=== PATIENT | female | born 2005 | race Caucasian/White ===

== ENCOUNTER 2024-12-25 09:03 | Inpatient (IN) ==
[2024-12-25] MEDS: SODIUM CHLORIDE 0.9% 1,000 ML IV ONE (09:40)
[2024-12-25] MEDS: ONDANSETRON INJ 2 MG/ML 2 ML VIAL IV STA (09:40)
[2024-12-25 09:55] LABS: Hematocrit (blood only) 43.7 % (37.0-47.0); Hemoglobin 14.6 g/dl (12.0-16.0); Immature Granulocytes # (auto) 0.03 K/uL (0.01-0.20); Immature Granulocytes % (auto) 0.3 %; Mean Corpuscular Hemoglobin 30.5 pg (25.0-34.0); Mean Corpuscular Volume 91.4 fL (80.0-100.0); Platelet Count 295 K/uL (130-400); RDW Standard Deviation 44.1 fL (36.4-46.3); Red Blood Count 4.78 M/uL (4.20-5.40); White Blood Count 10.02 K/ul (4.8-10.8)
--- NOTE | 2024-12-25 09:57 | Emergency Department Note ---
Impression & Plan Nausea, vomiting, and diarrhea, Abdominal pain, Acute hypokalemia ED Provider Note HISTORY OF PRESENT ILLNESS: Patient is a 19-year-old female presenting with hematemesis, diarrhea and right lower quadrant abdominal pain. Patient reports that she has been sick since returning from the [facility] [place] on vacation 3 weeks ago. She reports she stayed at a resort and did not eat any new or strange foods. She states that she has been having decreased oral intake over the last 3 weeks secondary to nausea and that every time she eats anything she immediately has diarrhea. Reports that she has been having continuous diarrhea for the last 3 weeks. She has also had nausea. She states she woke up this morning and had an episode of dark bloody diarrhea. Reports that she then proceeded to vomit bright red blood. She states she also developed right lower quadrant abdominal pain this morning, and thought she should be evaluated. She is not on any anticoagulation or antiplatelet therapies. Denies any fevers. Reports she has been very shaky and having uncontrollable body twitches since the symptoms started. Denies any headache or changes in vision. She denies any recent changes in medications. She denies any dysuria or hematuria. Denies any history of abdominal surgeries. Currently complaining of 7 out of 10 right lower quadrant abdominal pain and feeling nauseous. Patient reports she has lost 12 pounds in the last 3 weeks. ROS: as above PHYSICAL EXAM: Constitutional: Patient appears in no acute distress. Patient is having diffuse muscle spasms and very shaky on exam. HENT: Head: Normocephalic and atraumatic. Eyes: EOMI, PERRL Mouth/Throat: Mucous membranes moist. Neck: Trachea midline. Neck supple. Cardiovascular: RRR, No murmurs, rubs or gallops. Intact distal pulses. Pulmonary/Chest: No respiratory distress. Breath sounds clear and equal bilaterally. No wheezes or rales. Abdominal: Abdomen soft, no rebound or guarding. RLQ TTP Musculoskeletal: No edema, tenderness or deformity noted. Skin: Warm and dry. No rash, erythema, pallor or cyanosis Psychiatric: Appropriate mood and affect for situation. Neurological: Alert and keenly responsive. CN II-XII grossly intact, moving all extremities equally and fully. MDM: - Vitals signs stable. - History obtained via patient. History as above. - Chronic conditions affecting care: None - Differential diagnoses include, but are not limited to: Electrolyte abnormality; infectious colitis; diverticulitis; appendicitis; UTI; acute dehydration; bowel obstruction - Order placed for continuous cardiac monitoring. At this time, monitor showed rate of 81 bpm with normal sinus rhythm, per my interpretation. - External medical records reviewed. - EKG image interpreted by myself showed normal sinus rhythm. Rate 76 bpm. QT 366. No acute ischemic changes. - Laboratory workup interpreted by myself showed normal WBC; normal lactate; hypokalemia (K 3.2); normal troponin; normal lipase; negative AST/ALT; normal lipase - Stool PCR, ova/parasite studies ordered, but patient unable to provide stool sample in ER. - UA negative for infection. Noted to have ketonuria - Viral respiratory panel negative - CT abdomen/pelvis with IV contrast negative for acute pathology. Noted to have a follicle in the right ovary. - Patient given 20 mg IV pepcid, 1g IV tylenol and 1L NS in ER. On reassessment, patient still complaining of abdominal pain. Given 50 mg IV Toradol and 25 mcg of IV fentanyl. On reassessment, the pain is slightly improved. She is given 20 mill equivalents of IV potassium with 500 cc of fluid for electrolyte replacement in the emergency department. - Discussed results with the patient. She is still feeling very unwell. She request that we wait till her mother arrived to discuss plan. On mother's arrival, mother expresses concern, as the patient has lost 12 pounds in the last 3 weeks. Patient is still unable to provide a stool sample in the emergency department, so unsure if it is infected diarrhea or potential parasite. Will discuss case with hospitalist service for potential observation. - Discussion was had with protective services case worker about patient's case and need for admission - Hospitalist consulted for admission - Patient admitted to [facility] hospitalist service for further evaluation and management. ASSESSMENT AND PLAN: Diagnosis: nausea, vomiting and diarrhea; abdominal pain; acute hypokalemia Plan: Discharge Past Med/Surg History Problem List (Updated 12/25/24 @ 14:19 by Bianca Miller MD) Acute hypokalemia (Acute) Abdominal pain (Acute) Nausea, vomiting, and diarrhea (Acute) Social History Smoking Status: Never smoker Preferred Language: Greek Feels Safe at Home: Yes Allergies Allergies Allergy/AdvReac Type Severity Reaction Status Date / Time No Known Allergies Allergy Unverified 12/25/24 12:42 Home Meds Home Medications Medication Instructions Recorded Confirmed buspirone 5 mg tablet 5 mg PO BID 12/25/24 12/25/24 isotretinoin 30 mg capsule 30 mg PO BID 12/25/24 12/25/24 levonorgestrel 21 mcg/24 hr (up to 21 mcg intrauterine DIRECTED 12/25/24 12/25/24 8 years) 52 mg intrauterine device (Mirena) multivitamin 1 tab PO DAILY 12/25/24 12/25/24 Results & Data (ED) Vital Signs Vital Signs - 24 hr 12/25/24 09:10 12/25/24 09:22 12/25/24 10:59 Temperature 36.6 C Temperature Source Temporal Artery Scan Pulse Rate 99 H 79 82 Pulse Rate [Apical] Pulse Rhythm [Apical] Respiratory Rate 18 Respiratory Effort / Characteristics Non-Labored Respiratory Depth Normal Respiratory Pattern Regular Blood Pressure 104/67 Blood Pressure [Right Arm] Blood Pressure Mean 79 Blood Pressure Mean [Right Arm] Pulse Oximetry 100 99 Oxygen Delivery Method Room Air Room Air Sepsis Recent Fever Within 48 Hours No Sepsis New/Unexplained Change in Mental Status N/A Sepsis Action Taken by Nursing No Action Required 12/25/24 11:00 12/25/24 13:50 12/25/24 14:39 Temperature Temperature Source Pulse Rate 63 Pulse Rate [Apical] 81 76 Pulse Rhythm [Apical] Regular Respiratory Rate 16 18 14 Respiratory Effort / Characteristics Non-Labored Spontaneous Non-Labored Spontaneous Respiratory Depth Normal Normal Respiratory Pattern Blood Pressure 105/60 Blood Pressure [Right Arm] 109/62 105/65 Blood Pressure Mean 75 Blood Pressure Mean [Right Arm] 77 78 Pulse Oximetry 100 98 100 Oxygen Delivery Method Room Air Nasal Cannula Room Air Room Air Sepsis Recent Fever Within 48 Hours Sepsis New/Unexplained Change in Mental Status Sepsis Action Taken by Nursing Laboratory Data 12/25/24 09:25 12/25/24 09:25 Lab Results 12/25/24 12/25/24 12/25/24 Range/Units 09:20 09:25 09:41 WBC 10.02 (4.8-10.8) K/ul RBC 4.78 (4.20-5.40) M/uL Hgb 14.6 (12.0-16.0) g/dl Hct 43.7 (37.0-47.0) % MCV 91.4 (80.0-100.0) fL MCH 30.5 (25.0-34.0) pg MCHC 33.4 (32.0-36.0) g/dL RDW Std Deviation 44.1 (36.4-46.3) fL RDW Coeff of Debbie 13.1 (11.5-14.5) % Plt Count 295 (130-400) K/uL MPV 9.9 (9.4-12.4) fL Immature Gran % (Auto) 0.3 % Neut % (Auto) 72.1 % Lymph % (Auto) 20.3 % Ware % (Auto) 7.0 % Eos % (Auto) 0.1 % Baso % (Auto) 0.2 % Neut # (Auto) 7.23 H (1.40-6.50) K/uL Lymph # (Auto) 2.03 (1.20-3.40) K/uL Ware # (Auto) 0.70 H (0.11-0.59) K/uL Eos # (Auto) 0.01 (0.00-0.50) K/uL Baso # (Auto) 0.02 (0.00-0.20) K/uL Immature Gran # (Auto) 0.03 (0.01-0.20) K/uL Sodium 137 (136-145) mmol/L Potassium 3.2 L (3.5-5.1) mmol/L Chloride 103 (98-107) mmol/L Carbon Dioxide 25 (21-32) mmol/L Anion Gap 9 (3-11) BUN 12 (6-23) mg/dl Creatinine 0.79 (0.6-1.2) mg/dl Est Cr Clr Drug Dosing 85.7 ml/min eGFR 109.75 BUN/Creatinine Ratio 15.2 (10-20) Glucose 88 (70-99(Fasting)) mg/dl Lactate 1.0 (0.4-2.0) mmol/L Calcium 10.0 (8.6-10.3) mg/dl Magnesium 2.4 (1.7-2.4) mg/dl Total Bilirubin 0.9 (0.2-1.0) mg/dl AST 16 (13-39) U/L ALT 11 (7-52) U/L Alkaline Phosphatase 68 (34-104) U/L Troponin I High Sens 3.4 (0-14) pg/ml Total Protein 9.2 H (6.0-8.3) gm/dl Albumin 5.1 H (3.4-5.0) gm/dl Globulin 4.1 H (2.5-4.0) gm/dl Albumin/Globulin Ratio 1.2 (0.9-2) Lipase 9 L (11-82) U/L HCG, Qual Negative (Negative) Urine Color Dark Yellow Urine Appearance Clear (Clear) Urine pH 5.5 (4.5-7.5) Ur Specific Randolph 1.034 H (1.000-1.030) Urine Protein Trace H (Negative) Urine Glucose (UA) Negative (Negative) Urine Ketones 2+ H (Negative) Urine Blood Negative (Negative) Urine Nitrite Negative (Negative) Urine Bilirubin Negative (Negative) Urine Urobilinogen Negative (Negative) Ur Leukocyte Esterase Trace H (Negative) Urine WBC (Auto) 0-5 (0-5) /hpf Urine RBC (Auto) 0-2 (0-2) /hpf U Hyaline Cast (Auto) 3-5 H (0-2) /lpf U Epithel Cells (Auto) 0-2 (0-2) /hpf Urine Bacteria (Auto) None Seen (None Seen) Calcium Oxalate Crystal Present A (None Prsent) Urine Comment Adenovirus (PCR) Not Detected (NotDetected) B. pertussis DNA (PCR) Not Detected (NotDetected) B.parapertussis DNA PCR Not Detected (NotDetected) C. pneumoniae DNA (PCR) Not Detected (NotDetected) Coronavirus OC43 (PCR) Not Detected (NotDetected) Coronavirus HKU1 (PCR) Not Detected (NotDetected) Coronavirus 229E (PCR) Not Detected (NotDetected) SARS-CoV-2 (PCR) Not Detected (NotDetected) Coronavirus NL63 (PCR) Not Detected (NotDetected) Human Metapneumovir PCR Not Detected (NotDetected) Influenza Type A (PCR) Not Detected (NotDetected) Influenza Type B (PCR) Not Detected (NotDetected) M. pneumoniae (PCR) Not Detected (NotDetected) Parainfluenza 1 (PCR) Not Detected (NotDetected) Parainfluenza 2 (PCR) Not Detected (NotDetected) Parainfluenza 3 (PCR) Not Detected (NotDetected) Parainfluenza 4 (PCR) Not Detected (NotDetected) RSV (PCR) Not Detected (NotDetected) Entero/Rhino (PCR) Not Detected (NotDetected) Administered Medications Discontinued Medications Fentanyl Citrate (Fentanyl Citrate Pf 100 Mcg/2 Ml Vial) 25 mcg IV NOW STA Stop: 12/25/24 12:26 Last Admin: 12/25/24 12:29 Dose: 25 mcg Documented By: CHIQUIS Sodium Chloride (Nss) 1,000 mls @ 999 mls/hr IV .Q1H1M ONE Stop: 12/25/24 10:21 Last Infusion: 12/25/24 10:44 Dose: Infused Documented By: Admin: 12/25/24 09:40 Dose: 999 mls/hr Documented By: CHIQUIS Famotidine (Pepcid 20mg Iv Push) 20 mg in 5 mls @ 2.5 mls/min IV NOW STA Stop: 12/25/24 09:53 Last Admin: 12/25/24 10:04 Dose: 2.5 mls/min Documented By: CHIQUIS Acetaminophen (Ofirmev) 1,000 mg in 100 mls @ 400 mls/hr IV NOW STA Stop: 12/25/24 10:06 Last Infusion: 12/25/24 10:44 Dose: Infused Documented By: Admin: 12/25/24 10:04 Dose: 400 mls/hr Documented By: CHIQUIS Potassium Chloride (K Tony / Wtr) 10 meq in 100 mls @ 100 mls/hr IV Q1H THIERRY Stop: 12/25/24 14:14 Last Infusion: 12/25/24 15:00 Dose: Infused Documented By: Admin: 12/25/24 13:49 Dose: 90 mls/hr Documented By: Infusion: 12/25/24 13:34 Dose: Infused Documented By: Admin: 12/25/24 12:21 Dose: 100 mls/hr Documented By: CHIQUIS Sodium Chloride (Nss) 500 mls @ 999 mls/hr IV .Q31M ONE Stop: 12/25/24 12:40 Last Infusion: 12/25/24 13:53 Dose: Infused Documented By: Admin: 12/25/24 12:21 Dose: 999 mls/hr Documented By: CHIQUIS Ioversol (Optiray 320 100ml) 90 ml IV ONCE ONE Stop: 12/25/24 11:24 Last Admin: 12/25/24 11:23 Dose: 90 ml Documented By: ELIAZAR Ketorolac Tromethamine (Ketorolac Tromethamine 15 Mg/Ml Vial) 15 mg IV NOW STA Stop: 12/25/24 12:26 Last Admin: 12/25/24 12:28 Dose: 15 mg Documented By: CHIQUIS Ondansetron HCl (Ondansetron Inj 2 Mg/Ml 2 Ml Vial) 4 mg IV NOW STA Stop: 12/25/24 09:22 Last Admin: 12/25/24 09:40 Dose: 4 mg Documented By: CHIQUIS Imaging Data Radiologist's Impression: Abdomen/Pelvis CT 12/25/24 09:52 CT SCAN OF THE ABDOMEN AND PELVIS WITH IV CONTRAST CLINICAL HISTORY: Right lower quadrant pain. Bloody diarrhea. COMPARISON STUDY: None. TECHNIQUE: Following the IV administration of 90 cc of Optiray 320, CT scan of the abdomen and pelvis is performed from the lung bases to the proximal femora. Images are reviewed in the axial, sagittal, and coronal planes. IV contrast was administered without complication. A dose lowering technique was utilized adhering to the principles of ALARA. CT DOSE: 416.12 mGy.cm FINDINGS: Visualized lung bases are unremarkable. There is no pneumatosis, free air or portal venous gas. Liver, spleen, adrenal glands, kidneys and pancreas are normal. There is no biliary or pancreatic ductal dilatation. No peripancreatic or pericholecystic infiltration is present. No hydronephrosis. Caliber and wall thickness of small and large bowel are normal. The appendix is normal. A small amount of fluid within the pelvis is likely physiologic. Intrauterine device is in place. 2.2 cm low-attenuation rim-enhancing right adnexal lesion is present. Left ovary is unremarkable by CT. Major vasculature is patent. There is no lymphadenopathy. No fluid collections. IMPRESSION: 1. Normal appendix. No bowel wall thickening. No bowel obstruction. 2. 2.2 cm dominant follicle within the right ovary. 3. Small amount of fluid within the pelvis, likely physiologic. ACT 112: Negative or not required by law. Electronically signed by: Kevin Choudhury M.D. 12/25/2024 11:54 AM Discharge Plan Visit Data Chief Complaint: Vomiting Stated Complaint: THROWING UP BLOOD, POOPING BLOOD, CAN'T EAT ED Provider: Bianca Miller Discharge Problem: Nausea, vomiting, and diarrhea, Abdominal pain, Acute hypokalemia Condition: Fair Forms Stand Alone Forms: My [facility] Prescriptions Prescriptions: No Action multivitamin Tablet 1 tab PO DAILY buspirone 5 mg tablet 5 mg PO BID Mirena 21 mcg/24hr (up to 8 yrs) 52 mg Intrauterine Device 21 mcg INTRAUTERINE DIRECTED isotretinoin 30 mg capsule 30 mg PO BID Referrals Referrals: [facility] [Primary Care Provider] -
[2024-12-25] MEDS: ACETAMINOPHEN 1,000 MG/100 ML VIAL IV STA (10:04)
[2024-12-25] MEDS: FAMOTIDINE 20MG IV PUSH 20 MG/5 ML SYR IV STA (10:04)
[2024-12-25 10:13] LABS: Alanine Aminotransferase 11.0 U/L (7-52); Albumin Globulin Ratio 1.2 (0.9-2); Alkaline Phosphatase 68.0 U/L (34-104); Anion Gap 9.0 (3-11); Bilirubin,Total 0.9 mg/dl (0.2-1.0); Blood Urea Nitrogen 12.0 mg/dl (6-23); Calcium 10.0 mg/dl (8.6-10.3); Carbon Dioxide 25.0 mmol/L (21-32); Chloride 103.0 mmol/L (98-107); Creatinine Clr Calc Pharmacy 85.7 ml/min; Globulin 4.1 gm/dl (2.5-4.0); Glucose 88.0 mg/dl (70-99(Fasting)); Lipase 9.0 U/L (11-82); Potassium 3.2 mmol/L (3.5-5.1); Sodium 137.0 mmol/L (136-145); Total Protein 9.2 gm/dl (6.0-8.3)
[2024-12-25 10:23] LABS: Magnesium 2.4 mg/dl (1.7-2.4)
[2024-12-25 10:25] LABS: Appearance Urine Clear (Clear); Bacteria Urine Automated None Seen (None Seen); Epithelial Cell Urine Auto 0-2 /hpf (0-2); Glucose Urine UA Negative (Negative); RBC Urine Automated 0-2 /hpf (0-2); WBC Urine Automated 0-5 /hpf (0-5)
[2024-12-25 10:29] LABS: Pregnancy Test, Serum Negative (Negative)
[2024-12-25 10:47] LABS: Chlamydia pneumoniae PCR Not Detected (NotDetected); Coronavirus 229E PCR Not Detected (NotDetected); Coronavirus CoV-2 (COVID19)PCR Not Detected (NotDetected); Coronavirus HKU1 PCR Not Detected (NotDetected); Coronavirus NL63 PCR Not Detected (NotDetected); Coronavirus OC43PCR Not Detected (NotDetected); Human Metapneumovirus PCR Not Detected (NotDetected); Parainfluenza Virus 1 PCR Not Detected (NotDetected); Parainfluenza Virus 2 PCR Not Detected (NotDetected); Parainfluenza Virus 3 PCR Not Detected (NotDetected); Parainfluenza Virus 4 PCR Not Detected (NotDetected); Respiratory Syncytial VirusPCR Not Detected (NotDetected); Rhinovirus/Enterovirus PCR Not Detected (NotDetected)
[2024-12-25] MEDS: OPTIRAY 320 100ml IV ONE (11:23)
--- NOTE | 2024-12-25 11:57 | CT Scan Report ---
CT SCAN OF THE ABDOMEN AND PELVIS WITH IV CONTRAST CLINICAL HISTORY: Right lower quadrant pain. Bloody diarrhea. COMPARISON STUDY: None. TECHNIQUE: Following the IV administration of 90 cc of Optiray 320, CT scan of the abdomen and pelvi s is performed from the lung bases to the proximal femora. Images are reviewed in the axial, sagittal , and coronal planes. IV contrast was administered without complication. A dose lowering technique wa s utilized adhering to the principles of ALARA. CT DOSE: 416.12 mGy.cm FINDINGS: Visualized lung bases are unremarkable. There is no pneumatosis, free air or portal venous gas. Liver, spleen, adrenal glands, kidneys and pancreas are normal. There is no biliary or pancreati c ductal dilatation. No peripancreatic or pericholecystic infiltration is present. No hydronephrosis. Caliber and wall thickness of small and large bowel are normal. The appendix is normal. A small amou nt of fluid within the pelvis is likely physiologic. Intrauterine device is in place. 2.2 cm low-atte nuation rim-enhancing right adnexal lesion is present. Left ovary is unremarkable by CT. Major vascul ature is patent. There is no lymphadenopathy. No fluid collections. IMPRESSION: 1. Normal appendix. No bowel wall thickening. No bowel obstruction. 2. 2.2 cm dominant follicle within the right ovary. 3. Small amount of fluid within the pelvis, likely physiologic. ACT 112: Negative or not required by law. Electronically signed by: Kevin Choudhury M.D. 12/25/2024 11:54 AM
[2024-12-25] MEDS: POTASSIUM CHLORIDE / WTR 10 MEQ/100 ML PLCT IV SCH (12:21)
[2024-12-25] MEDS: SODIUM CHLORIDE 0.9% 500 ML IV ONE (12:21)
[2024-12-25] MEDS: KETOROLAC TROMETHAMINE 15 MG/ML VIAL IV STA (12:28)
--- NOTE | 2024-12-25 15:45 | History & Physical Report ---
Date of Service December 25, 2024 Assessment & Plan (1) Gastroenteritis: Plan Pt is a 19 yo female with a past medical hx of anxiety and GERD who presents to the hospital on 12/25 for 3 weeks of gastroenteritis following return from a trip to the [place]. #Gastroenteritis - on admission pt had symptoms of last day of trip and for the 3 weeks since return of N/V/abdominal cramps and 4-5 daily episodes of diarrhea daily - fortunately on admission she appears well, admission labs largely unremarkable, negative procal and no white count, VSS on admission - CT abd/pelvis unremarkable for acute pathology - will do IVF LR @ 125/hr - clear liquid diet for tonight, can consider upgrading tomorrow morning if tolerating tonight - stool PCR/cdiff/parasites/ova pending - will treat with azithromycin for traveler's diarrhea for now, can expand coverage based on clinical improvement/testing results - tylenol for pain first line, dilaudid for breakthrough pain (can increase duration or dose as tolerated for pain control) #Hematemesis - pt noted 1 episode of some blood in vomit and dark red blood in stool on morning of admission - CT abd/pelvis unremarkable - suspect from recurrent vomiting/diarrhea/gastritis - hemoglobin and hematocrit stable - continue to monitor - will do IV PPI + Pepcid, can potentially switch this to oral tomorrow VTE ppx: low risk (alex score 2 at most), ambulate as tolerated Dispo: Hopeful discharge tomorrow if tolerating intake Admission and Anticipated Discharge Date Admission Date: 12/25/24 History of Present Illness Chief Complaint: 4 week hx of persistent nausea, vomiting, and diarrhea Primary Care Provider: [facility] Tg is a 19 year-old female with PMH of GERD who presents with a 4 week hx of persistent nausea, vomiting, and diarrhea with an episode of hemoptysis and hematochezia this AM, which prompted the visit to the ED today. She said these symptoms started the night before she left her resort vacation in the [place] 4 weeks ago. Since returning to the , nausea has occurred daily, with multiple episodes of vomiting and diarrhea without known triggers. She does not recall eating anything abnormal, outside of the resort, and denies hx of IBD, celiac disease, NSAID overuse, smoking, alcohol, food allergies, GI irritants, hemorrhoids, anal fissure, laxative use, fever, chills, numbness, tingling, and passing out. Sexually active with one male and uses barrier and hormone contraception. She has been unable to keep much food down and has not felt like anything helps relieve symptoms. She has lost 12 lbs these past few weeks as a r esult of her symptoms, generally eats a healthy diet. Has not had anymore vomiting or diarrhea since arriving to the ED, denies chest pain and bleeding from her mouth/rectum. Allergies Allergy/AdvReac Type Severity Reaction Status Date / Time No Known Allergies Allergy Unverified 12/25/24 12:42 Home Medications Medication Instructions Recorded Confirmed Type buspirone 5 mg tablet 5 mg PO BID 12/25/24 12/25/24 History isotretinoin 30 mg capsule 30 mg PO BID 12/25/24 12/25/24 History levonorgestrel 21 mcg/24 hr (up to 21 mcg intrauterine DIRECTED 12/25/24 12/25/24 History 8 years) 52 mg intrauterine device (Mirena) multivitamin 1 tab PO DAILY 12/25/24 12/25/24 History Past Med/Surg History Problem List (Updated 12/25/24 @ 17:36 by Luisa Calloway) Gastroenteritis (Acute) Acute hypokalemia (Acute) Abdominal pain (Acute) Nausea, vomiting, and diarrhea (Acute) Medical History (Updated 12/25/24 @ 17:36 by Luisa Calloway) GERD (gastroesophageal reflux disease) Family History (Updated 12/25/24 @ 17:25 by Luisa Calloway) Other Cancer Social History Smoking Status: Never smoker Preferred Language: Hungarian Feels Safe at Home: Yes Review of Systems Review of Systems: As noted in HPI. Physical Exam Physical Exam: General: Does not appear in acute distress. HEENT: Atraumatic and normocephalic. PERRLA. Tympanic membranes clear and intact. CV: S1 and S2 sounds present, no murmurs, rubs, or gallops. RRR. Resp: CTA B/L. No rales, wheezing, or rhonchi. GI: Normoactive bowel sounds. Tenderness to palpation throughout all quadrants. MSK: No peripheral edema. No abnormal lesions visualized. Psych: Appropriate mood and affect. Results & Data Results & Data Vital Signs (Past 12 Hours) Vital Signs Temp Pulse Pulse Resp BP BP Pulse Ox 12/25/24 14:39 63 14 105/60 100 12/25/24 13:50 76 18 105/65 98 12/25/24 11:00 81 16 109/62 100 12/25/24 10:59 82 12/25/24 09:22 79 99 12/25/24 09:10 36.6 C 99 H 18 104/67 100 O2 Del Method 12/25/24 14:39 Room Air 12/25/24 13:50 Room Air 12/25/24 11:00 Room Air, Nasal Cannula 12/25/24 10:59 12/25/24 09:22 Room Air 12/25/24 09:10 Room Air Code Status & VTE Plan Code Status Full code VTE Prophylaxis Plan VTE Prophylaxis will be ordered: No Reason for no VTE drug order: Treatment not indicated Supervising Physician Co-Signing Physician Notes I personally examined the patient and verified all [place] points of history and exam, discussed case, and agree with decision making with Dr Markham and Srinivasan Calloway MS4 diarrhea nausea vomiting since returning from [place]. Has not gotten better. Losing weight involuntarily. Vitals noted, in general she is awake and alert fatigued. Breathing unlabored no accessory muscle use good effort. Skin without rashes pallor or icterus. Neuro without focal deficits. Labs and diagnostics noted. Intractable nausea vomiting and diarrheaseems most consistent with refractory traveler's diarrhea and concomitant dehydrationgiven duration of illness and very low suspicion of enterohemorrhagic E. coli, will treat with azithromycin. IV fluids. Supportive care. Follow clinically, home once p.o. intake is improving. Otherwise as above. Resident Activity Tracking Resident Involvement: Resident Care Provided Care Provided: Adult Hospital Medicine
[2024-12-25] MEDS: HYDROmorphone INJ 0.5 MG/0.5 ML SYR IV STA (16:25)
[2024-12-25] MEDS: ONDANSETRON INJ 2 MG/ML 2 ML VIAL IV ONE (16:26)
--- NOTE | 2024-12-25 17:05 | Billing Data ---
Date of Service December 25, 2024 Coding Level of Care Code 93995 INT INP/OBS CARE
[2024-12-25] MEDS ORDERED: MELATONIN 3 MG TAB PO PRN (18:28)
[2024-12-25] MEDS: ACETAMINOPHEN 1,000 MG/100 ML VIAL IV SCH (19:09)
[2024-12-25] MEDS: LACTATED RINGER'S 1,000 ML IV SCH (19:09)
[2024-12-25] MEDS: AZITHROMYCIN 250 MG TAB PO SCH (19:10)
[2024-12-25] MEDS: PANTOprazole 40 MG/10 ML SYR IV SCH (19:10)
[2024-12-25] MEDS: HYDROmorphone INJ 0.5 MG/0.5 ML SYR IV PRN (20:36)
[2024-12-25] MEDS: busPIRone 5 MG TAB PO SCH (21:38)
--- NOTE | 2024-12-25 22:40 | Electrocardiogram Report ---
Test Reason : Blood Pressure : */* mmHG Vent. Rate : 76 BPM Atrial Rate : 76 BPM P-R Int : 148 ms QRS Dur : 80 ms QT Int : 366 ms P-R-T Axes : 65 72 32 degrees QTcB Int : 411 ms Sinus rhythm with marked sinus arrhythmia Possible Left atrial enlargement Nonspecific T wave abnormality Abnormal ECG When compared with ECG of 06-Jun-2024 11:39, Nonspecific T wave abnormality now evident in Anterior leads Confirmed by Kei Agrawal ([id number]) on 12/25/2024 10:39:43 PM Referred By: REFERRED SELF Confirmed By: Kei Agrawal
[2024-12-26] MEDS: ONDANSETRON INJ 2 MG/ML 2 ML VIAL IV PRN (00:48)
[2024-12-26 07:28] LABS: Hematocrit (blood only) 34.1 % (37.0-47.0); Hemoglobin 11.2 g/dl (12.0-16.0); Immature Granulocytes # (auto) 0.02 K/uL (0.01-0.20); Immature Granulocytes % (auto) 0.3 %; Mean Corpuscular Hemoglobin 30.9 pg (25.0-34.0); Mean Corpuscular Volume 93.9 fL (80.0-100.0); Platelet Count 197 K/uL (130-400); RDW Standard Deviation 43.9 fL (36.4-46.3); Red Blood Count 3.63 M/uL (4.20-5.40); White Blood Count 7.31 K/ul (4.8-10.8)
[2024-12-26] MEDS: SIMETHICONE 80 MG CHEW PO PRN (08:10)
[2024-12-26 08:13] LABS: Alanine Aminotransferase 7.0 U/L (7-52); Albumin Globulin Ratio 1.4 (0.9-2); Alkaline Phosphatase 46.0 U/L (34-104); Anion Gap 10.0 (3-11); Bilirubin,Total 0.8 mg/dl (0.2-1.0); Blood Urea Nitrogen 9.0 mg/dl (6-23); Calcium 8.4 mg/dl (8.6-10.3); Carbon Dioxide 18.0 mmol/L (21-32); Chloride 109.0 mmol/L (98-107); Creatinine Clr Calc Pharmacy 104.2 ml/min; Globulin 2.6 gm/dl (2.5-4.0); Glucose 58.0 mg/dl (70-99(Fasting)); Potassium 4.0 mmol/L (3.5-5.1); Sodium 137.0 mmol/L (136-145); Total Protein 6.2 gm/dl (6.0-8.3)
[2024-12-26] MEDS: FAMOTIDINE 20MG IV PUSH 20 MG/5 ML SYR IV SCH (10:04)
--- NOTE | 2024-12-26 11:01 | Hospitalist Progress Note ---
Date of Service December 26, 2024 Assessment & Plan (1) Gastroenteritis: Plan Pt is a 19 yo female with a past medical hx of anxiety and GERD who presents to the hospital on 12/25 for 3 weeks of gastroenteritis following return from a trip to the [place] and tested positive for EPEC in stool sample this afternoon. Bacteria in line with recent travel to and will continue current management for now and advance diet as tolerated. #Gastroenteritis Assessment: On admission pt had symptoms of last day of trip and for the 3 weeks since return of N/V/abdominal cramps and 4-5 daily episodes of diarrhea daily and still feels lousy today. Stool sample positive for EPEC, which further supports current differential of gastroenteritis due to travel. Continuing supportive care and azithro, will re-assess for switching abx if no improvement by Tuesday. Has tolerated liquid diet today with less diarrhea than before. Plan: - Continue IVF LR - Continue liquid diet for now, re-assess tomorrow morning to advance, tolerating thus far - Stool parasites/ova pending - Continue azithromycin for now, re-assess switching abx if no improvement by Tuesday - Dilaudid and Ketorolac for pain control #Hematemesis Assessment: Pt noted 1 episode of some blood in vomit and dark red blood in stool on morning of admission, no issues with emesis today and no hemoptysis/hematemesis today with CT abd/pelvis unremarkable. This was likely due to irritation of the esophagus from recurrent vomiting/diarrhea/gastritis. Labs have been stable thus far, less concern to work this up further at this time with pt. having no more episodes. - continue to monitor - Continuing IV PPI + Pepcid, can potentially switch this to oral tomorrow Admission and Anticipated Discharge Date Admission Date: December 25, 2024 Supervising Physician Co-Signing Physician Notes I personally examined the patient and verified all [place] points of history and exam, discussed case, and agree with decision making with Dr Markham and Srinivasan Calloway MS4 Feeling about the same. Discussed results. Discussed plan. Vitals noted, in general she is awake and alert fatigued. Breathing unlabored no accessory muscle use good effort. Skin without rashes pallor or icterus. Neuro without focal deficits. Labs and diagnostics noted. Intractable nausea vomiting and diarrheaseems most consistent with refractory traveler's diarrhea and concomitant dehydration Stool studies consistent with suspicion. Has not improved yet, but also has not worsenedand barely started treatment 24 hours ago. Discussed with patient that it is unfortunate but not at all surprising she is not feeling better yetwould stay the course and anticipate improvement. Can follow back on broader E. coli focused gram- negative coverage if she does not improve in the coming days, but I suspect she will start to turn soon. Subjective Seen at bedside this AM, feels the same as yesterday. Pain meds have been helping, has been able to keep down liquid diet throughout today. No episodes of emesis or diarrhea. Review of Systems Review of Systems: As noted in HPI. Physical Exam Physical Exam: General: Does not appear in acute distress. HEENT: Atraumatic and normocephalic. PERRLA. Tympanic membranes clear and intact. CV: S1 and S2 sounds present, no murmurs, rubs, or gallops. RRR. Resp: CTA B/L. No rales, wheezing, or rhonchi. GI: Normoactive bowel sounds. Tenderness to palpation throughout all quadrants; no distention or guarding MSK: No peripheral edema. No abnormal lesions visualized. Psych: Appropriate mood and affect. Results & Data Results & Data Vital Signs (Past 12 Hours) Vital Signs Temp Pulse Resp BP Pulse Ox O2 Del Method 12/26/24 07:55 37 C 85 18 96/58 L 97 Room Air Resident Activity Tracking Resident Involvement: Resident Care Provided Care Provided: Adult Hospital Medicine
[2024-12-26] MEDS: KETOROLAC TROMETHAMINE 15 MG/ML VIAL IV PRN (13:49)
[2024-12-26] MEDS: DICYCLOMINE HCL 10 MG CAP PO ONE (13:54)
[2024-12-26 14:20] LABS: Cdiff Toxin B Gene (2yr or >) Negative Cdiff Gene (Neg)
[2024-12-26 14:53] LABS: Adenovirus F 40/41 PCR Not Detected (NotDetected); Campylobacter PCR Not Detected (NotDetected); Enteroaggregative E.coli(EAEC) Not Detected (NotDetected); Shiga-like Toxin E.coli (STEC) Not Detected (NotDetected); Vibrio species PCR Not Detected (NotDetected)
[2024-12-26] MEDS: HYDROmorphone INJ 0.5 MG/0.5 ML SYR IV STA (16:01)
--- NOTE | 2024-12-26 18:42 | Billing Data ---
Date of Service December 26, 2024 Coding Level of Care Code 85897 SUB INP/OBS CARE MIN
[2024-12-26] MEDS: HYDROmorphone INJ 0.5 MG/0.5 ML SYR IV PRN (19:51)
[2024-12-27 07:29] LABS: Hematocrit (blood only) 32.0 % (37.0-47.0); Hemoglobin 10.7 g/dl (12.0-16.0); Mean Corpuscular Hemoglobin 30.9 pg (25.0-34.0); Mean Corpuscular Volume 92.5 fL (80.0-100.0); Platelet Count 174 K/uL (130-400); RDW Standard Deviation 43.5 fL (36.4-46.3); Red Blood Count 3.46 M/uL (4.20-5.40); White Blood Count 4.90 K/ul (4.8-10.8)
[2024-12-27 07:54] LABS: Anion Gap 3.0 (3-11); Blood Urea Nitrogen 4.0 mg/dl (6-23); Calcium 8.3 mg/dl (8.6-10.3); Carbon Dioxide 27.0 mmol/L (21-32); Chloride 108.0 mmol/L (98-107); Creatinine Clr Calc Pharmacy 101.1 ml/min; Glucose 87.0 mg/dl (70-99(Fasting)); Potassium 3.6 mmol/L (3.5-5.1); Sodium 138.0 mmol/L (136-145)
--- NOTE | 2024-12-27 10:53 | Hospitalist Progress Note ---
Date of Service December 27, 2024 Assessment & Plan (1) Gastroenteritis: Plan Pt is a 19 yo female with a past medical hx of anxiety and GERD who presents to the hospital on 12/25 for 3 weeks of gastroenteritis following return from a trip to the [place] and tested positive for EPEC in stool sample this afternoon. Bacteria in line with recent travel to and will continue current management for now and advance diet as tolerated. #Gastroenteritis Assessment: On admission pt had symptoms of last day of trip and for the 3 weeks since return of N/V/abdominal cramps and 4-5 daily episodes of diarrhea daily and still feels lousy today. Stool sample positive for EPEC, which further supports current differential of gastroenteritis due to travel. Continuing supportive care and azithro, will re-assess for switching abx if no improvement by Tuesday. Has been improving since admission with no emesis, less diarrhea, and tolerating full liquid diet. Plan: - D/C LRs as she is tolerating PO intake - Advance to regular diet today and monitor to see if she tolerates - Stool parasites/ova pending - Continue azithromycin for now, re-assess switching abx if no improvement by Tuesday - Dilaudid and Ketorolac for pain control - Zofran PRN #Hematemesis Assessment: Pt noted 1 episode of some blood in vomit and dark red blood in stool on morning of admission, no issues with emesis today and no hemoptysis/hematemesis today with CT abd/pelvis unremarkable. This was likely due to irritation of the esophagus from recurrent vomiting/diarrhea/gastritis. Labs have been stable thus far, less concern to work this up further at this time with pt. having no more episodes. - Continue to monitor - Switch to oral famotidine and pantoprazole from IV Admission and Anticipated Discharge Date Admission Date: December 27, 2024 Subjective Seen at bedside this AM, feels slightly better. Has noticed more soft stools, not just loose and has not had any emesis since admission. Does still feel nauseous and abdominal pain, for which is well-controlled with current pain regimen. Review of Systems Review of Systems: As noted in HPI. Physical Exam Physical Exam: General: Does not appear in acute distress. HEENT: Atraumatic and normocephalic. PERRLA. Tympanic membranes clear and intact. CV: S1 and S2 sounds present, no murmurs, rubs, or gallops. RRR. Resp: CTA B/L. No rales, wheezing, or rhonchi. GI: Normoactive bowel sounds. Tenderness to palpation throughout all quadrants. MSK: No peripheral edema. No abnormal lesions visualized. Psych: Appropriate mood and affect. Results & Data Results & Data Vital Signs (Past 12 Hours) Vital Signs Temp Pulse Resp BP Pulse Ox O2 Del Method 12/27/24 07:03 36.8 C 67 18 95/62 L 98 Room Air 12/26/24 23:16 37.1 C 67 18 103/61 99 Room Air
[2024-12-27] MEDS: HYDROmorphone INJ 0.5 MG/0.5 ML SYR IV PRN (15:05)
--- NOTE | 2024-12-27 19:43 | Discharge Summary ---
Discharge Summary Date of Service December 27, 2024 Principal Dx & Hospital Course #1 = Principal Diagnosis (1) Gastroenteritis: Plan Pt is a 19 yo female with a past medical hx of anxiety and GERD who presents to the hospital on 12/25 for 3 weeks of gastroenteritis following return from a trip to the [place] and tested positive for EPEC in stool sample this afternoon. Bacteria in line with recent travel to and will continue current management for now and advance diet as tolerated. #Gastroenteritis Traveler's diarrheaEPEC enteritis with intractable pain, nausea, vomiting and dehydrationfortunately after a course of azithromycin as well as IV fluids and supportive care, she is doing much better and feels up to going home. Safe/stable for home, has completed course of antibiotics. Tylenol as needed paingiven that she was still requiring some Dilaudid, discussed a short course of oxycodone (if she is needing that degree of pain relief past a few more days I would definitely want her reevaluated because something would be odd or a new diagnosis would have crept up). Safe/stable for home. #Hematemesis Assessment: Pt noted 1 episode of some blood in vomit and dark red blood in stool on morning of admission, None sincealmost certainly gastritis related. Notes For Next Care Provider Medication Changes From Visit None chronically. Short-term Tylenol and very short-term oxycodone. Admission HPI Per Admitting Provider Tg is a 19 year-old female with PMH of GERD who presents with a 4 week hx of persistent nausea, vomiting, and diarrhea with an episode of hemoptysis and hematochezia this AM, which prompted the visit to the ED today. She said these symptoms started the night before she left her resort vacation in the [place] 4 weeks ago. Since returning to the , nausea has occurred daily, with multiple episodes of vomiting and diarrhea without known triggers. She does not recall eating anything abnormal, outside of the resort, and denies hx of IBD, celiac disease, NSAID overuse, smoking, alcohol, food allergies, GI irritants, hemorrhoids, anal fissure, laxative use, fever, chills, numbness, tingling, and passing out. Sexually active with one male and uses barrier and hormone contraception. She has been unable to keep much food down and has not felt like anything helps relieve symptoms. She has lost 12 lbs these past few weeks as a result of her symptoms, generally eats a healthy diet. Has not had anymore vomiting or diarrhea since arriving to the ED, denies chest pain and bleeding from her mouth/rectum. Discharge Exam In general she is awake alert oriented pleasant no distress. HEENT normocephalic atraumatic mucous membranes moist. Breathing unlabored no accessory muscle use good effort. Skin without rashes pallor or icterus. Neuro without focal deficits. Updated Medication List Medication Instructions Recorded Confirmed Type buspirone 5 mg tablet 5 mg PO BID 12/25/24 12/25/24 History isotretinoin 30 mg capsule 30 mg PO BID 12/25/24 12/25/24 History levonorgestrel 21 mcg/24 hr (up to 21 mcg intrauterine DIRECTED 12/25/24 12/25/24 History 8 years) 52 mg intrauterine device (Mirena) multivitamin 1 tab PO DAILY 12/25/24 12/25/24 History oxycodone 5 mg tablet 5 mg PO TID PRN pain #7 tabs 12/27/24 Rx Hospital Stay Data Consultations 12/25/24 15:03 ED Decision to Admit Stat Diagnostic Imagining Performed 12/25/24 09:52 CT Abd and Pelvis [CT abd pelvis IV con only] Stat Pending Results Patient Have Any Pending Studies at Discharge: No Discharge Instructions Given to Patient (Per Discharging Provider) traveler's diarrheayour symptoms and presentation all fit with a refractory case of traveler's diarrhea. Your stool tested positive for enteropathogenic E. coli which is certainly what we would expect. You have actually completed a course of azithromycin and your symptoms are improvingtherefore the actual infection should be adequately treated. As we discussed, it often takes quite a while for symptoms to totally resolveand while I hope you improve faster, it is reasonable to look at January 30 as your "back to good as new" finish line. For the next few days, I would continue to take Tylenol 650 mg 3 times a day for pain control, after another 2-3 days start can back it down to 3 times a day as needed. I have sent a prescription for oxycodone as needed for more severe painthink of this as similar to when you were getting the Dilaudid here. If you are still having enough pain that you would need the oxycodone past Tuesday (pain that severe persisting into Tuesday) I would definitely when she is seen because it would probably mean something new/different/odd was going on. After that, the pain should continue to get betterprobably with some intermittent cramping at times and otherwise at different times feeling fine. As far as tolerating food, there is not necessarily a "exact science"if you are struggling with anything, falling back to a pediatrics brat (bananas, rice, applesauce, toast) diet is always easy to absorb, but you may not need to restrict that much. Rather, I would simply go easy with foods and figure that slowly over time you will be able to tolerate more and more regular food. Total Time Total Time Spent Total Time Spent (In Minutes): Less than 30
--- NOTE | 2024-12-27 19:43 | Billing Data ---
Date of Service December 27, 2024 Coding Level of Care Code 88952 IN/OBS DISCH 30 MIN/LESS
[2024-12-27] MEDS: FAMOTIDINE 20 MG TAB PO SCH (20:05)
[2024-12-27] MEDS ORDERED: FAMOTIDINE 40 MG/5 ML 50ML BTL PO SCH (21:00)
== END 2024-12-27 20:08 | disposition home or self-care (01) | DRG 372 ==
LOC: ED 09:03 → EDINP 09:03 → 3W 18:28